=== PATIENT | male | born 1990 | race Caucasian/White ===

== ENCOUNTER 2022-08-28 23:58 | Emergency (ER) | payer OTHER ==
[2022-08-28 23:58] VITALS: BP 130/68
[~2022-08-28 23:58] MED LIST: MOTRIN800 MG PO
[2022-08-29 01:08] LABS: BILIRUBIN Negative (Negative); BLOOD 3+ (Negative); CLARITY Clear (Clear); COLOR Yellow (Yellow); GLUCOSE Negative (Negative); KETONE 1+ (Negative); LEUKO ESTERASE 1+ (Negative); NITRITE Negative (Negative); SPECIFIC GRAVITY >= 1.030 (1.001-1.030)
[2022-08-29] MEDS ORDERED: FLOMAX0.4 MG PO (01:11)
[2022-08-29] MEDS ORDERED: HYDROCODONE-AC1 EAC1 PO (01:11)
[2022-08-29] MEDS ORDERED: ONDANSETRON4 MG SL (01:11)
[2022-08-29 01:21] LABS: CALCIUM OXALATE CRYSTALS Trace; RBC 41-50 rbc/hpf (0-2)
== END 2022-08-29 01:15 | disposition home or self-care (01) ==
LOC: ED 23:58
PROVIDERS: Internal Medicine
DX: N13.2 Hydronephrosis with renal and ureteral calculous obstruction (principal); N13.4 Hydroureter; Z91.040 Latex allergy status; Z90.49 Acquired absence of other specified parts of digestive tract